=== PATIENT | female | born 2000 | race Caucasian/White ===

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

== ENCOUNTER 2020-06-15 05:04 | Emergency (ER) | payer OTHER ==
[2020-06-15 05:21] VITALS: BP 115/67
[2020-06-15] MEDS ORDERED: CHERRY SYRUP 10 ML UDC PO ONE (05:30)
[2020-06-15] MEDS ORDERED: DEXAMETHASONE 10 MG/ML VIAL PO STA (05:30)
[2020-06-15 05:53] LABS: RAPID STREP SCREEN Negative (Negative)
[2020-06-15] MEDS ORDERED: AMOX/CLAV 875 MG/125 MG TABLET PO STA (05:59)
--- NOTE | 2020-06-15 06:00 | ED Physician Documentation ---
PD HPI HEENT - Stated complaint Stated Complaint: SORE THROAT - Chief complaint Chief Complaint: Heent - History obtained from History obtained from: Patient - History of Present Illness Timing - onset: Last night Timing - duration: Hours Timing - details: Gradual onset, Still present Location: Throat Improves: Medication Worsens: Swalllowing Associated symptoms: Congestion, Swollen nodes Similar symptoms before: Diagnosis (tonsillitis and strep) Recently seen: Not recently seen - Additional information Additional information: 20-year-old female has developed a sore throat and a hoarse voice overnight. She states that she has had this happen to her twice before she has had strep as a child and she has not been sleeping well. 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 Review of Systems Constitutional: denies: Fever Eyes: denies: Decreased vision Ears: denies: Ear pain Nose: denies: Rhinorrhea / runny nose, Congestion Throat: reports: Sore throat Cardiac: denies: Chest pain / pressure, Palpitations Respiratory: denies: Dyspnea, Cough GI: denies: Abdominal Pain, Nausea, Vomiting PD PAST MEDICAL HISTORY - Past Medical History Past Medical History: Yes Respiratory: Asthma HEENT: Other Psych: Depression Other Past Medical History: Strep Pahryngitis - Past Surgical History Past Surgical History: No - Present Medications Home Medications: Ambulatory Orders Medication Instructions Recorded Confirmed Cetirizine HCl [Zyrtec] 10 mg PO DAILY 06/26/14 06/15/20 Fluticasone [Flonase] 1 spray NS DAILY PRN 06/26/14 06/15/20 Montelukast [Singulair] 10 mg PO DAILY 01/18/16 06/15/20 Amox/Clav 875/125 [Augmentin] 1 each PO Q12H #20 tablet 06/15/20 Fluoxetine HCl [Prozac] 20 mg PO DAILY 06/15/20 06/15/20 - Allergies Allergies/Adverse Reactions: Allergies Allergy/AdvReac Type Severity Reaction Status Date / Time azithromycin [From Zithromax] Allergy Unknown Verified 06/15/20 05:21 - Social History Does the pt smoke?: No Smoking Status: Never smoker Does the pt drink ETOH?: No Does the pt have substance abuse?: No - Immunizations Immunizations are current?: Yes - POLST Patient has POLST: No PD ED PE NORMAL - Vitals Vital signs reviewed: Yes (normal ) - General General: Alert and oriented X 3, No acute distress, Well developed/nourished - HEENT HEENT: Atraumatic, PERRL, EOMI, Ears normal, Moist mucous membranes, Other (The tonsils are 2+ cryptic and exudative.) - Neck Neck: Supple, no meningeal sign, No bony TTP - Cardiac Cardiac: RRR, No murmur - Respiratory Respiratory: No respiratory distress, Clear bilaterally - Abdomen Abdomen: Soft, Non tender - Back Back: No CVA TTP, No spinal TTP - Derm Derm: Normal color, Warm and dry, No rash - Extremities Extremities: No deformity, No edema - Neuro Neuro: Alert and oriented X 3, 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, No motor deficit, No sensory deficit, Normal speech Eye Opening: Spontaneous Motor: Obeys Commands Verbal: Oriented GCS Score: 15 - Psych Psych: Normal mood, Normal affect Results - Vitals Vitals: Vital Signs - 24 hr 06/15/20 05:05 Temperature 36.6 C Heart Rate 81 Respiratory 16 Rate Blood Pressure 115/67 O2 Saturation 98 Oxygen O2 Source Room air - Labs Labs: Laboratory Tests 06/15/20 05:15 Group A Strep Rapid Negative PD MEDICAL DECISION MAKING - ED course Complexity details: reviewed old records, reviewed results, considered differential, d/w patient ED course: 20-year-old female with cryptic exudative tonsillitis has a negative rapid strep and she is administered dexamethasone 10 mg orally and Augmentin 875 mg. Departure - Departure Disposition: 01 Home, Self Care Clinical Impression: Tonsillitis with exudate Condition: Stable Instructions: ED Tonsillitis Follow-Up: Bart Macdonald ARNP [Primary Care Provider] - Prescriptions: Amox/Clav 875/125 [Augmentin] 1 each PO Q12H #20 tablet Discharge Date/Time: 06/15/20 06:05
== END 2020-06-15 06:05 | disposition home or self-care (01) ==
LOC: ED 05:04
DX: J03.90 Acute tonsillitis, unspecified (principal)
CPT/HCPCS: 87070; 87430; 99283; 99284; A9270

== ENCOUNTER 2022-02-11 17:31 | Emergency (ER) | payer OTHER ==
[2022-02-11 17:43] VITALS: BP 116/74
--- NOTE | 2022-02-11 17:58 | ED Physician Documentation ---
PD HPI HEENT - Stated complaint Stated Complaint: THROAT AND TONSIL PX - Chief complaint Chief Complaint: Heent - History obtained from History obtained from: Patient - Additional information Additional information: For the last month she has had a white spot on her left tonsil. Has become progressively more inflamed and painful over the last few days. No fevers. Review of Systems Constitutional: denies: Fever, Chills Eyes: reports: Reviewed and negative Cardiac: reports: Reviewed and negative Respiratory: reports: Reviewed and negative PD PAST MEDICAL HISTORY - Past Medical History Respiratory: Asthma HEENT: Other Psych: Depression - Past Surgical History Past Surgical History: No - Present Medications Home Medications: Ambulatory Orders Medication Instructions Recorded Confirmed Cetirizine HCl [Zyrtec] 10 mg PO DAILY 06/26/14 06/15/20 Fluticasone [Flonase] 1 spray NS DAILY PRN 06/26/14 06/15/20 Montelukast [Singulair] 10 mg PO DAILY 01/18/16 06/15/20 Amox/Clav 875/125 [Augmentin] 1 each PO Q12H #20 tablet 06/15/20 Fluoxetine HCl [Prozac] 20 mg PO DAILY 06/15/20 06/15/20 - Allergies Allergies/Adverse Reactions: Allergies Allergy/AdvReac Type Severity Reaction Status Date / Time azithromycin [From Zithromax] Allergy Unknown Verified 02/11/22 17:43 - Social History Does the pt smoke?: No Smoking Status: Never smoker Does the pt drink ETOH?: No Does the pt have substance abuse?: No - Immunizations Immunizations are current?: Yes - POLST Patient has POLST: No PD ED PE NORMAL - Vitals Vital signs reviewed: Yes - General General: Alert and oriented X 3, No acute distress - HEENT HEENT: Other (Large left-sided tonsil stone without other visible abnormality of the oropharynx.) - Neck Neck: Supple, no meningeal sign, No adenopathy - Neuro Neuro: Alert and oriented X 3, Normal speech - Psych Psych: Normal mood, Normal affect Results - Vitals Vitals: Vital Signs - 24 hr 02/11/22 17:38 Temperature 36.4 C L Heart Rate 76 Respiratory 16 Rate Blood Pressure 116/74 O2 Saturation 98 Oxygen O2 Source Room air PD MEDICAL DECISION MAKING - ED course ED course: The tonsil stone was flushed out using a syringe with an IV catheter in it with the removal. Departure - Departure Disposition: 01 Home, Self Care Clinical Impression: Tonsil stone Condition: Good Record reviewed to determine appropriate education?: Yes Comments: Return if worsening. If this becomes a recurrent issue you can follow-up with an ear nose and throat physician for evaluation and consideration of tonsillectomy.
--- OUTSIDE RECORDS SUMMARY | 2022-02-11 18:08 | EXTERNAL MEDICAL SUMMARY RPT | Continuity of Care Document ---
:2000 Author Organization [facility] Address [address] [place] [address] Phone Care Team Providers Name Role Phone Liliana Fitch Unavailable Unavailable Allergies No information. Encounters No information. Medications date description facility 20211218 Triamcinolone Acetonide 1 MG/ML Topical [facility] 20211113 120 ACTUAT Fluticasone propionate 0.22 MG/ACTUAT [facility] Metered Dose Inhaler 20211113 Sertraline 25 MG Oral Tablet [facility]ital 20211113 montelukast 10 MG Oral Tablet [facility] 20211113 cetirizine hydrochloride 10 MG [facility] Problems date description facility [id number] Acute pharyngitis, unspecified [facility] [id number] Depression, unspecified [facility] [id number] Anxiety disorder, unspecified [facility] Procedures date description facility [id number] [facility] [id number] [facility] [id number] [facility] [id number] [facility] [id number] [facility] [id number] [facility] [id number] [facility] [id number] [facility] [id number] [facility] [id number] [facility] [id number] [facility] [id number] [facility] [id number] [facility] [id number] [facility] [id number] [facility] [id number] [facility] [id number] [facility] [id number] [facility] [id number] [facility] [id number] [facility] [id number] [facility] [id number] [facility] [id number] [facility] [id number] [facility] [id number] [facility] [id number] [facility] [id number] [facility] [id number] [facility] [id number] [facility] Results No information. Vital Signs date measurement value source 20211113 weight_standard 54.66 lb 20211113 weight_metric 24.79 kg 20211113 height_standard 63.6 in 20211113 height_metric 161.54 cm 20211113 heart_rate 67 /min 20211113 BP_systolic 122 mm[Hg] 20211113 BP_diastolic 66 mm[Hg] 20211113 BMI 20.9 kg/m2 20211218 weight_standard 55 lb 20211218 weight_metric 24.95 kg 20211218 height_standard 63.6 in 20211218 height_metric 161.54 cm 20211218 BP_systolic 122 mm[Hg] 20211218 BP_diastolic 76 mm[Hg] 20211218 BMI 21.0 kg/m2
== END 2022-02-11 18:07 | disposition home or self-care (01) ==
LOC: ED 17:31
DX: J35.8 Other chronic diseases of tonsils and adenoids (principal)
CPT/HCPCS: 99281; 99282